=== PATIENT | female | born 1970 | race Caucasian/White ===

== ENCOUNTER 2017-11-20 03:47 | Emergency (ER) | payer SELFPAY ==
[~2017-11-20] VITALS: Ht 165.1 cm; Wt 76.7 kg
[2017-11-20 03:54] VITALS: BP 129/88
--- NOTE | 2017-11-20 03:54 | NUR ---
TO BED # 3 AMBULATORY, REPORT GIVEN TO JODEE WALKER
--- NOTE | 2017-11-20 04:06 | NUR ---
Dr. Ortega evaluating patient at bedside.
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
[2017-11-20 04:17] VITALS: BP 129/88
== END 2017-11-20 04:17 | disposition home or self-care (01) ==
LOC: MED 03:47
DX: S91.135A Puncture wound without foreign body of left lesser toe(s) without damage to nail, initial encounter (principal); X58.XXXA Exposure to other specified factors, initial encounter; Y93.89 Activity, other specified; Y92.098 Other place in other non-institutional residence as the place of occurrence of the external cause; Y99.8 Other external cause status
CPT/HCPCS: 99283